=== PATIENT | female | born 1985 | race Caucasian/White ===

== ENCOUNTER 2023-07-06 13:01 | Emergency (ER) | payer MEDICAID ==
[2023-07-06] MEDS ORDERED: Sodium Chloride 0.9% 10 ML Syringe FLUSH PRN (13:21)
[2023-07-06] MEDS ORDERED: Naloxone 0.4 MG/ML SDV IVPUSH PRN (13:24)
[2023-07-06] MEDS ORDERED: fentaNYL 100 MCG/2 ML SDV IVPUSH ONE (13:24)
[2023-07-06] MEDS ORDERED: Sodium Chloride 0.9% 1,000 ML IV SCH (13:30)
[2023-07-06] MEDS ORDERED: Ondansetron 4 MG/2 ML SDV IVPUSH ONE (13:43)
[2023-07-06 13:49] LABS: BASOPHILS PERCENT AUTO 0.2 % (0.1-1.3); EOSINOPHILS ABSOLUTE AUTO 0.15 K/uL (0.00-0.40); EOSINOPHILS PERCENT AUTO 1.6 % (0.0-5.4); HEMATOCRIT 41.1 % (34.3-46.0); IMMATURE GRAN ABSOLUTE AUTO 0.03 K/uL (0.00-0.23); IMMATURE GRAN PERCENT AUTO 0.3 % (0.0-0.7); LYMPHOCYTES ABSOLUTE AUTO 1.86 K/uL (0.8-3.3); LYMPHOCYTES PERCENT AUTO 20.1 % (11.4-47.7); MEAN CORPUSCULAR HEMOGLOBIN 31.7 pg (31.6-35.5); MEAN CORPUSCULAR HGB CONC 34.1 g/dL (31.6-35.5); MEAN CORPUSCULAR VOLUME 93.2 fL (81.4-99.0); MONOCYTES PERCENT AUTO 5.4 % (3.3-12.6); NEUTROPHILS PERCENT AUTO 72.4 % (40.0-78.1); PLATELET COUNT,PLT 366 K/uL (130-375); RED BLOOD CELL COUNT 4.41 M/uL (3.77-5.24); WHITE BLOOD CELL COUNT,WBC 9.3 K/uL (3.2-11.0)
[2023-07-06 13:50] LABS: BASOPHILS ABSOLUTE AUTO 0.02 K/uL (0.00-0.10)
[2023-07-06 14:05] LABS: CALCIUM 8.5 mg/dL (8.5-10.1); CREATININE 0.7 mg/dL (0.6-1.0); EST CRCL DRUG DOSING (CG) 102.97 mL/min; POTASSIUM,K 4.4 mmol/L (3.6-5.2)
[2023-07-06 14:06] LABS: ANION GAP 14.4 mmol/L (5.0-14.0)
[2023-07-06 14:10] LABS: INR 0.9; PROTHROMBIN TIME 9.3 sec (9.2-10.6); PTT,PARTIAL THROMBOPLSTIN TIME 26.5 sec (21.8-27.3)
[2023-07-06] MEDS ORDERED: Sodium Chloride 0.9% 10 ML Syringe FLUSH ONE (14:50)
[2023-07-06] MEDS ORDERED: Iopamidol 612 MG/ML 100 ML Bottle IV PRN (14:50)
[2023-07-06 14:56] LABS: APPEARANCE,URINE CLOUDY (CLEAR); BILIRUBIN,URINE NEGATIVE (NEGATIVE); COLOR,URINE YELLOW (YELLOW); GLUCOSE,URINE NEGATIVE (NEGATIVE); KETONES,URINE NEGATIVE (NEGATIVE); LEUKOCYTE ESTERASE,URINE TRACE (NEGATIVE); NITRITE,URINE NEGATIVE (NEGATIVE); OCCULT BLOOD,URINE LARGE (NEGATIVE); PH,URINE 5.5 (5.0-8.0); PROTEIN,URINE TRACE mg/dL (NEGATIVE); UROBILINOGEN,URINE 0.2 EU/dL (0.2-1.0)
[2023-07-06] MEDS ORDERED: Sodium Chloride 0.9% 50 ML IV SCH (15:00)
[2023-07-06 15:01] LABS: AMPHETAMINES SCREEN, URINE NEGATIVE (NEGATIVE); BARBITURATE SCREEN,URINE NEGATIVE (NEGATIVE); BENZODIAZEPINES SCREEN,URINE NEGATIVE (NEGATIVE); METHADONE SCREEN, URINE NEGATIVE (NEGATIVE); METHAMPHETAMINES SCREEN, URINE PRESUMPTIVE POSITIVE (NEGATIVE); OXYCODONE SCREEN,URINE NEGATIVE (NEGATIVE); PROPOXYPHENE SCREEN,URINE NEGATIVE (NEGATIVE); THC SCREEN,URINE 50 NG/ML NEGATIVE (NEGATIVE)
[2023-07-06] MEDS ORDERED: HYDROmorphone 0.5 MG/0.5 ML Syringe IVPUSH ONE (15:01)
[2023-07-06 15:02] LABS: RBC,URINE 75-100 (0-5)
[2023-07-06 15:03] LABS: AMORPHOUS SEDIMENT,URINE NOT SEEN; BACTERIA,URINE MODERATE; EPITHELIAL CELLS,URINE MODERATE; MUCUS,URINE NOT SEEN
[2023-07-06] MEDS ORDERED: methylPREDNISolone Sodium Succinate 125 MG/2 ML SDV IM ONE (16:24)
[2023-07-06] MEDS ORDERED: diphenhydrAMINE 50 MG/ML SDV IM ONE (16:25)
== END 2023-07-06 16:55 | disposition home or self-care (01) ==
LOC: JP.ED 13:01
DX: N83.209 Unspecified ovarian cyst, unspecified side (principal); F15.10 Other stimulant abuse, uncomplicated; T50.8X5A Adverse effect of diagnostic agents, initial encounter; F17.210 Nicotine dependence, cigarettes, uncomplicated; Z86.16 Personal history of COVID-19; Z91.030 Bee allergy status
CPT/HCPCS: 36415; 74177; 74177-26; 80048; 80305-QW; 81001; 84702; 85025; 85610; 85730; 86850; 86900; 86901; 96361; 96372; 96374; 96375; 99284; 99284-25; J1170; J1200; J2405; J2930; J3010; J3490; J7030; Q9967

== ENCOUNTER 2023-12-03 10:07 | Emergency (ER) | payer MEDICAID ==
[2023-12-03 11:43] LABS: CORONAVIRUS COVID-19 NAA NEGATIVE (NEGATIVE); INFLUENZA A NAA NEGATIVE (NEGATIVE); INFLUENZA B NAA NEGATIVE (NEGATIVE); RESPIRATORY SYNCYTIAL VIR NAA NEGATIVE (NEGATIVE)
[2023-12-03] MEDS: Dexamethasone 4 MG/ML SDV PO ONE (12:00)
== END 2023-12-03 12:08 | disposition home or self-care (01) ==
LOC: JP.ED 10:07
DX: B34.9 Viral infection, unspecified (principal); F17.210 Nicotine dependence, cigarettes, uncomplicated; Z91.030 Bee allergy status; Z79.899 Other long term (current) drug therapy; Z86.19 Personal history of other infectious and parasitic diseases; Z86.16 Personal history of COVID-19; Z90.49 Acquired absence of other specified parts of digestive tract
CPT/HCPCS: 0241U; 99283; J8540